=== PATIENT | male | born 1980 | race Caucasian/White ===

== ENCOUNTER 2018-08-28 01:26 | Emergency (ER) | payer OTHER ==
[~2018-08-28] VITALS: Ht 175.3 cm; Wt 95.3 kg
[2018-08-28 01:36] VITALS: BP 146/96
[2018-08-28] MEDS ORDERED: IBUPROFEN 800800 M1 PO (01:44)
[2018-08-28] MEDS ORDERED: TYLENOL EXTRA500 MG PO (01:44)
[2018-08-28] MEDS ORDERED: NEURONTIN600 MG PO (01:44)
[2018-08-28] MEDS ORDERED: TORADOL 10 MG T10 MG PO (02:01)
[2018-08-28] MEDS ORDERED: PREDNISONE 20 M20 MG PO (02:01)
== END 2018-08-28 02:17 | disposition home or self-care (01) ==
LOC: ER 01:26
DX: G56.03 Carpal tunnel syndrome, bilateral upper limbs (principal); Z88.1 Allergy status to other antibiotic agents